=== PATIENT | male | born 1980 | race African-American/Black ===

== ENCOUNTER 2019-11-06 02:26 | Emergency (ER) | payer OTHER ==
[~2019-11-06] VITALS: Ht 165.1 cm; Wt 68.0 kg
[2019-11-06 02:40] VITALS: BP 122/89
--- NOTE | 2019-11-06 02:40 | NUR ---
ED Nurse Note: Pt BIBA d/t ETOH intoxication; [facility] reports finding pt on street after drinking with friend. Pt aaaox1. Pt refuses all blood work and labs. ERMD aware.
--- NOTE | 2019-11-06 02:45 | Emergency Room Report ---
History of Present Illness General Chief Complaint: Alcohol Intoxication Source: Patient Present Illness HPI Patient 38-year-old male brought in by EMS after possible alcohol intoxication. Patient was noted to be vomiting. He had recently reportedly been drinking alcohol per EMS. Patient was noted to be confused more than usual. He reports having some nausea. He had been given IM Zofran by EMS. Allergies: Coded Allergies: No Known Allergies (Unverified , 11/06/19) Patient History Past Medical History: see triage record Reviewed Nursing Documentation: PMH: Agreed; PSxH: Agreed Review of Systems All Other Systems: negative except mentioned in HPI Physical Exam Vital Signs Date Time Temp Pulse Resp B/P (MAP) Pulse Ox O2 Delivery O2 Flow Rate FiO2 11/06/19 02:24 97.5 89 20 122/89 (100) 99 Room Air Sp02 EP Interpretation: reviewed, normal General Appearance: normal inspection, well appearing, no apparent distress, alert, GCS 15 Head: normocephalic, atraumatic ENT: normal ENT inspection, hearing grossly normal, normal voice Neck: normal inspection, full range of motion, supple, no bony tend Respiratory: normal inspection, lungs clear, normal breath sounds, no respiratory distress, no retraction, no wheezing Cardiovascular #1: regular rate, rhythm, no edema Gastrointestinal: normal inspection, normal bowel sounds, non tender, soft, no guarding, no hernia Genitourinary: no CVA tenderness Musculoskeletal: normal inspection, back normal, normal range of motion Neurologic: alert, motor strength/tone normal, speech pathology assistant III-XII nml as tested, oriented x3, responsive, speech normal, normal inspection Psychiatric: normal inspection, judgement/insight normal, mood/affect normal Skin: no rash Medical Decision Making Diagnostic Impression: Primary Impression: Vomiting ER Course Patient presented for altered mental status. Differential diagnosis includes not limited to alcohol intoxication, gastroenteritis, substance abuse among others. Patient has a benign exam and does not appear to require any imaging or laboratory testing at this time. Patient was observed in the emergency department. He had gradual improvement in his mental status. He appeared to be initially intoxicated. Patient was subsequently noted to have improvement in his mental status and was able to ambulate without assistance. He was discharged home. The patient is advised to follow up with primary care doctor in 1-2 days. Patient is advised to return if any worsening condition or if any changes in status that are concerning. This report is dictated with [employer] air hammer operator software which may occasionally lead to discrepancies related to use of this software. Last Vital Signs Date Time Temp Pulse Resp B/P (MAP) Pulse Ox O2 Delivery O2 Flow Rate FiO2 11/06/19 02:24 97.5 89 20 122/89 (100) 99 Room Air Status: improved Disposition: HOME, SELF-CARE Condition: Stable Scripts Ondansetron Odt* (ZOFRAN ODT*) 4 Mg Tab.rapdis 4 MG BC EVERY 6 HOURS PRN for Nausea & Vomiting, #10 TAB 0 Refills Prov: Galen Vasquez MD 11/06/19 Galen Vasquez MD Nov 06, 2019 02:45
--- NOTE | 2019-11-06 03:00 | NUR ---
ED Nurse Note: pt refused vital signs. ERMD aware
--- NOTE | 2019-11-06 03:40 | NUR ---
ED Nurse Note: Pt woke up and continued to refuse blood work.
--- NOTE | 2019-11-06 04:12 | NUR ---
ED Nurse Note: Pt sleeping in bed, vss no s/s of distress noted.
[2019-11-06 04:40] VITALS: BP 121/84
[2019-11-06] MEDS ORDERED: ONDANSETRON ODT4 MG BC (05:48)
--- NOTE | 2019-11-06 06:41 | NUR ---
ED Nurse Note: Pt sleeping in bed, VSS no s/s of distress noted.
[2019-11-06 06:50] VITALS: BP 124/84
--- NOTE | 2019-11-06 07:10 | NUR ---
ED Nurse Note: Report given to SHANON Blackmon
[2019-11-06 08:31] VITALS: BP 121/80
--- NOTE | 2019-11-06 08:31 | NUR ---
ER DISCHARGE NOTE: Patient is cleared to be discharged per ERMD, pt is aox4, on room air, with stable vital signs. pt was given dc and prescription instructions, pt was able to verbalize understanding, pt id band removed. pt is able to ambulate with steady gait. pt took all belongings.
== END 2019-11-06 08:31 | disposition home or self-care (01) ==
LOC: EDBD 02:26 → EMR 02:57
DX: R11.10 Vomiting, unspecified (principal); F10.129 Alcohol abuse with intoxication, unspecified; Y90.9 Presence of alcohol in blood, level not specified
CPT/HCPCS: 99282